=== PATIENT | female | born 1990 | race African-American/Black ===

== ENCOUNTER → 2017-01-13 | Outpatient (CLI) | payer OTHER ==
--- NOTE | 2017-01-13 14:52 | XR ---
Thoracic spine HISTORY: Back pain 2 views of the thoracic spine on 3 images Thoracic vertebral bodies show preserved height, alignment, and bone mineralization. Mild spinal curv ature is noted. Disc spaces are maintained. IMPRESSION: Mild spinal curvature.
--- NOTE | 2017-01-13 14:54 | XR ---
Cervical spine HISTORY: Neck pain 5 views of the cervical spine There is overlying artifact. No significant foraminal encroachment. Cervical vertebral bodies show pr eserved height, alignment, and bone mineralization. Loss of normal cervical lordosis could be due to muscle spasm. Disc spaces and prevertebral soft tissues are normal. IMPRESSION: Loss of normal cervical lordosis.
== END | disposition home or self-care (01) ==
LOC: RADXRMAIN 11:14
PROVIDERS: ATTEND Family Medicine
DX: M43.8X4 Other specified deforming dorsopathies, thoracic region (principal); M54.6 Pain in thoracic spine; M54.2 Cervicalgia
CPT/HCPCS: 72050; 72070